=== PATIENT | male | born 1975 | race Caucasian/White ===

== ENCOUNTER → 2018-08-30 | Outpatient (CLI) | payer OTHER ==
--- NOTE | 2018-08-30 12:18 | RAD ---
EXAM: Scrotal sonogram. HISTORY: Right testicular pain. TECHNIQUE: Sol scale and color Doppler sonographic imaging of the scrotum with spectral waveform analysis was performed. COMPARISON: None. FINDINGS: The right testis measures 4.5 x 2.3 x 3.3 cm. The left testis measures 4.3 x 2.3 x 3.1 cm. No focal testicular parenchymal lesion is seen. There is normal symmetric blood flow within both testes. There are adjacent right epididymal cyst measuring 1.3 cm and 1.3 cm. There is a small right hydrocele. IMPRESSION: 1. Small right epididymal cysts. 2. Small right hydrocele. 3. Sonographically unremarkable testes. Electronically signed by: Casi Shen MD (08/30/2018 12:15 PM) [id number]
== END | disposition home or self-care (01) ==
LOC: US 07:38
PROVIDERS: ATTEND Physician Assistant
DX: N50.3 Cyst of epididymis (principal); N43.2 Other hydrocele
CPT/HCPCS: 76870